=== PATIENT | male | born 1980 | race Hispanic/Latino ===

== ENCOUNTER 2021-02-26 13:14 | Emergency (ER) | payer MEDICARE ==
[2021-02-26] MEDS ORDERED: oxyCODONE /ACETAMINOPHEN 5-325MG TAB PO ONE (14:17)
[2021-02-26] MEDS ORDERED: ASPIRIN 81 MG TAB CHEW PO ONE (14:17)
--- NOTE | 2021-02-26 14:17 | Emergency Department Report ---
<SWEETIE FREEMAN - Last Filed: 02/26/21 18:40> ED Chest Pain HPI - General Chief Complaint: Chest Pain Stated Complaint: CHEST PAIN Time Seen by Provider: 02/26/21 13:58 - Related Data Home Medications Medication Instructions Recorded Confirmed Last Taken Cymbalta 20 mg PO BID 02/26/21 02/26/21 02/26/21 Levothyroxine [Synthroid] 1 tab PO DAILY 02/26/21 02/26/21 02/26/21 Robaxin TAB 1 tab PO 4XD PRN 02/26/21 02/26/21 02/26/21 SEROquel 200 mg PO DAILY 02/26/21 02/26/21 02/25/21 clonazePAM [KlonoPIN] 1 mg PO BID 02/26/21 02/26/21 02/26/21 1 mg lisinopriL [Lisinopril] 10 mg PO DAILY 02/26/21 02/26/21 02/26/21 risperiDONE [RisperDAL] 2 mg PO 02/26/21 02/26/21 2 mg traZODone 150 mg PO QHS 02/26/21 02/26/21 02/25/21 Allergies Allergy/AdvReac Type Severity Reaction Status Date / Time NSAIDS (Non-Steroidal Allergy Severe Swelling Verified 02/26/21 21:08 Anti-Inflamma cefazolin [From Ancef] Allergy Swelling Verified 02/26/21 14:03 haloperidol [From Haldol] Allergy Unknown Verified 02/26/21 14:03 tramadol [From Ultram] Allergy Hives Verified 02/26/21 14:03 ED Past Medical Hx - Medications Home Medications: Home Medications Medication Instructions Recorded Confirmed Last Taken Type Cymbalta 20 mg PO BID 02/26/21 02/26/21 02/26/21 History Levothyroxine [Synthroid] 1 tab PO DAILY 02/26/21 02/26/21 02/26/21 History Robaxin TAB 1 tab PO 4XD PRN 02/26/21 02/26/21 02/26/21 History SEROquel 200 mg PO DAILY 02/26/21 02/26/21 02/25/21 History clonazePAM [KlonoPIN] 1 mg PO BID 02/26/21 02/26/21 02/26/21 History 1 mg lisinopriL [Lisinopril] 10 mg PO DAILY 02/26/21 02/26/21 02/26/21 History risperiDONE [RisperDAL] 2 mg PO 02/26/21 02/26/21 History 2 mg traZODone 150 mg PO QHS 02/26/21 02/26/21 02/25/21 History ED Medical Decision Making - Lab Data Result diagrams: 02/26/21 14:19 02/26/21 14:19 - Medical Decision Making 40-year-old male signed out to me by Dr. Luis to follow-up repeat troponin and EKG and discharged if no change. Repeat troponin negative. EKG normal sinus without acute changes. Patient will be discharged back to psychiatric facility ED Disposition Clinical Impression: Chest pain Qualifiers: Chest pain type: unspecified Qualified Code(s): R07.9 - Chest pain, unspecified Disposition: HOME / SELF CARE / HOMELESS Condition: Stable Instructions: Nonspecific Chest Pain, Adult Additional Instructions: Please follow-up with a primary care physician as soon as you are able to do so. I am giving you a referral for a local tile roofer, Dr. Marx, to follow-up as soon as you are done at [facility]. Return to the emergency department with any worsening of your symptoms, new or concerning symptoms not addressed during this current emergency department visit, or with any acute distress. Referrals: JAMES MARX MD [Staff Physician] - 3-5 Days <LEXIS CARRINGTON - Last Filed: 02/27/21 06:13> ED Chest Pain HPI - General Source: EMS Mode of arrival: Stretcher Limitations: No Limitations - History of Present Illness Initial Comments: 40-year-old male presents to the emergency department via EMS from his [facility] facility with complaint of chest pain that started about 2.5 hours prior to presentation. He says that the chest pain is sharp, 7 out of 10 in intensity, and radiates to the left shoulder and arm. He denies any fever, cough, shortness of breath, back pain, lower extremity swelling, nausea, vomiting or diaphoresis. No known aggravating or alleviating factors. He has not taken anything, nor received anything, for his symptoms prior to presentation today. He has a past medical history of hypertension, diabetes, hypothyroidism, bipolar disorder and schizophrenia. No recent travel or sick contacts at home. The patient says that he had a stress test about 1 year ago that was normal. He denies any tobacco or illicit drug use. Severity scale (0 -10): 7 Heart Score - HEART Score History: Slightly suspicious EKG: Normal Age: < 45 Risk factors: 1-2 risk factors Troponin: < normal limit HEART Score: 1 - EKG Read Time Time EKG Completed: 13:32 EKG Read Time: 13:35 ED Review of Systems ROS: Stated complaint: CHEST PAIN Other details as noted in HPI Comment: All other systems reviewed and negative Constitutional: denies: chills, fever Eyes: denies: eye pain, vision change ENT: denies: ear pain, throat pain Respiratory: denies: cough, shortness of breath Cardiovascular: chest pain. denies: palpitations Gastrointestinal: denies: abdominal pain, vomiting Genitourinary: denies: dysuria, discharge Musculoskeletal: denies: back pain, arthralgia Skin: denies: rash, lesions Neurological: denies: headache, weakness ED Past Medical Hx - Past Medical History Previous Medical History?: Yes Hx Hypertension: Yes Hx Psychiatric Treatment: Yes (bipolar/schizophrenia) Additional medical history: hypothyroidism - Surgical History Hx Cholecystectomy: Yes Hx Appendectomy: Yes Additional Surgical History: tonsillectomy - Social History Smoking Status: Never Smoker Substance Use Type: None ED Physical Exam - General Limitations: No Limitations - Other Other exam information: GENERAL: The patient is well-developed well-nourished. HENT: Normocephalic. Atraumatic. Patient has moist mucous membranes. EYES: Extraocular motions are intact. NECK: Supple. Trachea is midline. CHEST/LUNGS: Clear to auscultation. There is no respiratory distress noted. HEART/CARDIOVASCULAR: Regular. There is no tachycardia. There is no murmur. ABDOMEN: Abdomen is soft, nontender. Patient has normal bowel sounds. There is no abdominal distention. SKIN: Skin is warm and dry. NEURO: The patient is awake, alert, and oriented. The patient is cooperative. The patient has no focal neurologic deficits. Normal speech. MUSCULOSKELETAL: There is no tenderness or deformity. There is no limitation range of motion. ED Course Vital Signs 02/26/21 02/26/21 02/26/21 13:47 13:54 14:03 Temperature 98.1 F 98.1 F Pulse Rate 91 H 91 H Respiratory 16 16 Rate Blood Pressure 108/56 Blood Pressure 108/56 [Left] O2 Sat by Pulse 95 95 98 Oximetry 02/26/21 02/26/21 02/26/21 14:15 16:13 18:56 Temperature Pulse Rate 94 H 96 H 96 H Respiratory 19 22 Rate Blood Pressure Blood Pressure 120/60 119/64 [Left] O2 Sat by Pulse 95 96 Oximetry 02/26/21 02/26/21 02/26/21 18:57 21:13 23:32 Temperature 98.3 F Pulse Rate 96 H 90 86 Respiratory 22 18 12 Rate Blood Pressure Blood Pressure 119/64 125/73 110/68 [Left] O2 Sat by Pulse 96 96 95 Oximetry ANTONINO score - Antonino Score Age > 65: (0) No Aspirin use within the Past 7 Days: (0) No 3 or more CAD Risk Factors: (0) No 2 or more Angina events in past 24 hrs: (1) Yes Known CAD with more than 50% Stenosis: (0) No Elevated Cardiac Markers: (0) No ST Deviation Greater than 0.5mm: (0) No ANTONINO Score: 1 ED Medical Decision Making - Lab Data Result diagrams: 02/26/21 14:19 02/26/21 14:19 - EKG Data -: EKG Interpreted by Me EKG shows normal: sinus rhythm, axis, intervals, QRS complexes, ST-T waves Rate: normal - EKG Data When compared to previous EKG there are: previous EKG unavailable Interpretation: normal EKG - Radiology Data Radiology results: image reviewed interpreted by me: Chest x-ray does not show any acute process. There are no pleural effusions, obvious pneumonia and there is no pneumothorax. No widened mediastinum. - Medical Decision Making This patient presented to the emergency department from his psychiatric facility with a complaint of some left-sided chest pain that started about 2.5 hours prior to presentation. Heart and lungs are normal to auscultation. The patient does not appear in any respiratory or acute distress. EKG is normal without any morphology consistent with ST elevation myocardial infarction. Chest x-ray does not show any pneumonia, pleural effusions, pneumothorax, widened mediastinum, or any other acute process. Patient's labs have been unremarkable including CBC, metabolic panel and negative troponins x2. The patient is low on the heart and ANTONINO score. The patient is low on the Wells score criteria and pulmonary embolism rule out criteria. His vital signs have been reassuring throughout his ED course. Patient's pain was treated and he had great improvement. He was seen resting comfortably multiple times. All of this together does not appear consistent with ACS and he appears safe for discharge back to a psychiatric facility. He has been instructed to follow-up with primary care and cardiology upon discharge from [facility]. He will return to the emergency department with any worsening of his symptoms or with any acute distress. Critical Care Time: No Critical care attestation.: If time is entered above; I have spent that time in minutes in the direct care of this critically ill patient, excluding procedure time. ED Disposition Is pt being admited?: No
--- NOTE | 2021-02-26 14:36 | XRay Report ---
CHEST 1 VIEW 02/26/2021 2:00 PM INDICATION / CLINICAL INFORMATION: CP. COMPARISON: None available. FINDINGS: SUPPORT DEVICES: None. HEART / MEDIASTINUM: No significant abnormality. LUNGS / PLEURA: No significant pulmonary or pleural abnormality. No pneumothorax. ADDITIONAL FINDINGS: No significant additional findings. IMPRESSION: 1. No acute findings. Signer Name: José Miguel Warner MD Signed: 02/26/2021 2:32 PM Workstation Name: [id number]
[2021-02-26 14:51] LABS: BUN/Creatinine Ratio 13; Blood Urea Nitrogen 10 mg/dL (9-20); Calcium 8.8 mg/dL (8.4-10.2); Hemolysis Index 49
[2021-02-26 15:16] LABS: Basophils # (Auto) 0.1 K/mm3 (0.0-0.1); Basophils % (Auto) 0.8 % (0.0-1.8); Eosinophils # (Auto) 0.5 K/mm3 (0.0-0.4); Eosinophils % (Auto) 5.2 % (0.0-4.3); Hematocrit 40.3 % (35.5-45.6); Hemoglobin 13.3 gm/dl (11.8-15.2); Lymphocytes # (Auto) 2.5 K/mm3 (1.2-5.4); Lymphocytes % (Auto) 25.6 % (13.4-35.0); Mean Corpuscular HGB Conc 33 % (32-34); Mean Corpuscular Volume 89 fl (84-94); Monocytes # (Auto) 0.8 K/mm3 (0.0-0.8); Platelet Count 312 K/mm3 (140-440); Red Blood Count 4.51 M/mm3 (3.65-5.03); Red Cell Distribution Width 13.9 % (13.2-15.2)
[2021-02-26] MEDS ORDERED: MORPHINE 4 MG/1 ML INJ IV ONE (15:41)
[2021-02-26] MEDS ORDERED: KETOROLAC 60 MG/2 ML INJ IM ONE (20:59)
[2021-02-26] MEDS ORDERED: ACETAMINOPHEN 325 MG TAB PO ONE (21:07)
[2021-02-26 23:32] VITALS: BP 110/68
--- NOTE | 2021-02-27 12:20 | Electrocardiograph Report ---
[facility] Test Date: 2021-02-26 Test Time: 17:12:32 Pat Name: CECE ORONA Department: Room: Gender: M Engineering Research Manager: RASHEL : 1980 Requested By: LEXIS CARRINGTON Order Number: [id number] Reading MD: Jocelyn Harley Measurements Intervals [place] Rate: 88 P: 26 [place]: 150 QRS: -18 QRSD: 101 T: 32 QT: 369 QTc: 447 Interpretive Statements Sinus rhythm Low voltage, precordial leads No previous ECG available for comparison Electronically Signed On 02-27-2021 12:20:20 EDT by Jocelyn Harley
--- NOTE | 2021-02-27 12:23 | Electrocardiograph Report ---
[facility] Test Date: 2021-02-26 Test Time: 13:32:54 Pat Name: CECE ORONA Department: Room: Gender: M Market Development Executive: TRISTON : 1980 Requested By: LEXIS CARRINGTON Order Number: [id number] Reading MD: Jocelyn Harley Measurements Intervals [place] Rate: 94 P: 41 [place]: 147 QRS: -16 QRSD: 95 T: 64 QT: 344 QTc: 431 Interpretive Statements Sinus rhythm No previous ECG available for comparison Electronically Signed On 02-27-2021 12:23:00 EDT by Jocelyn Harley
== END 2021-02-26 23:45 | disposition home or self-care (01) ==
LOC: ED 13:14
DX: R07.9 Chest pain, unspecified (principal); Z88.1 Allergy status to other antibiotic agents; Z88.5 Allergy status to narcotic agent; Z88.8 Allergy status to other drugs, medicaments and biological substances; I10 Essential (primary) hypertension; F31.9 Bipolar disorder, unspecified; F20.9 Schizophrenia, unspecified; Z90.49 Acquired absence of other specified parts of digestive tract; Z90.89 Acquired absence of other organs
CPT/HCPCS: 36415; 71045; 80048; 84484; 85025; 93005; 96374; 99284; J1885; J2270; 99285